=== PATIENT | male | born 1990 | race Caucasian/White ===

== ENCOUNTER 2020-01-15 12:08 | Emergency (ER) | payer OTHER, SELFPAY ==
--- NOTE | 2020-01-15 12:15 | ED.EAR ---
HPI - Ear Problem General Chief complaint: Ear Stated complaint: ear pain Source: patient and RN notes reviewed Limitations: no limitations History of Present Illness HPI Narrative: The patient, a non-smoker/occasional drinker, presents with ear discomfort. Patient states he has about a 1 week history of right ear pain that is mild, worse with palpation, preceded by slight itching and fullness. No fever, cough, URI just sinusitis, loss of taste/smell, CP, sore throat, S OB, discharge, rash, V/D/dehydration; past EENT history remarkable for prior PE tubes.. Related Data Home Medications Medication Instructions Recorded Confirmed No Home Medications 01/15/20 01/15/20 Allergies Allergy/AdvReac Type Severity Reaction Status Date / Time No Known Allergies Allergy Verified 01/15/20 12:33 Review of Systems Review of Systems: Narrative: The patient has been informed that they may have pre-hypertension or Hypertension based on a BP reading in the department. I recommend that the patient call the primary care provider listed on their discharge instructions or a physician of their choice this week to arrange follow up for further evaluation of possible pre-hypertension or Hypertension General/Constitutional: No weight loss,fever Eyes: N0: Redness,discharge Ears/Nose/Throat: No: Epistaxis,ear discharge Respiratory: Denies: Hemoptysis Gastrointestinal: No Vomiting, Bleeding-rectal Skin: No Lumps, eruption Neurologic: No Focal Weakness,Sz Hematologic: Denies: Petechiae/Purpura Psychiatric: No: Suicida ideationl All Other Systems: Reviewed and Negative FOR[facility] Social History Social History Smoking status: Never smoker Second hand tobacco smoke exposure: No Alcohol intake: current Comments At time of signature, agree with nursing past medical, surgical, social and family history. There is no relevant family history pertinent to the presenting complaint Exam Narrative: Exam Narrative: General Appearance: Well appearing, No distress EYE: PERRLA, Conjunctiva clear Ears: External ear normal, right TM bulging red; left TM and EAC clear Nose: Normal nose Mouth/Throat: Normal appearing, Normal lips Neck: Supple Respiratory: Airway patent, No respiratory distress Musculoskeletal: Full ROM Skin: Warm, Dry Neurological: A&O x3, Normal affect Course Vital Signs Vital signs: Vital Signs Temperature 97.7 F 01/15/20 12:17 Pulse Rate 86 01/15/20 12:17 Respiratory Rate 20 01/15/20 12:17 Blood Pressure 148/94 H 01/15/20 12:17 Pulse Oximetry 99 01/15/20 12:17 Temperature 97.7 F 01/15/20 12:17 Pulse Rate 86 01/15/20 12:17 Respiratory Rate 20 01/15/20 12:17 Blood Pressure 148/94 H 01/15/20 12:17 Pulse Oximetry 99 01/15/20 12:17 Medical Decision Making Vital Signs Vital Signs: Vital Signs Temperature 97.7 F 01/15/20 12:17 Pulse Rate 86 01/15/20 12:17 Respiratory Rate 20 01/15/20 12:17 Blood Pressure 148/94 H 01/15/20 12:17 Pulse Oximetry 99 01/15/20 12:17 Temperature 97.7 F 01/15/20 12:17 Pulse Rate 86 01/15/20 12:17 Respiratory Rate 20 01/15/20 12:17 Blood Pressure 148/94 H 01/15/20 12:17 Pulse Oximetry 99 01/15/20 12:17 Discharge Plan Discharge Clinical Impression: Otitis media Qualifiers: Otitis media type: suppurative Chronicity: acute Laterality: right Recurrence: non-recurrent Spontaneous tympanic membrane rupture: without spontaneous rupture Qualified Code(s): H66.001 - Acute suppurative otitis media without spontaneous rupture of ear drum, right ear Patient Disposition: Home, Self-Care Condition: Stable Instructions: Antibiotic Form, Ear Infection (ED) Prescriptions: New amoxicillin-pot clavulanate [Augmentin] 500-125 mg tablet 1 tablet PO Q12H Qty: 20 RF: 0 [id number] 3.5-10,000-1 mg/mL-unit/mL-% drops,suspension 4 drp RIGHTEAR Q8H Qty: 10 RF: 1 No Action No Home
[2020-01-15 12:17] VITALS: BP 148/94; PULSE 86; RESP 20; TEMP 36.5; O2SAT 99
== END 2020-01-15 12:40 | disposition home or self-care (01) ==
PROVIDERS: Emergency Provider Emergency Medicine
DX: H66.001 Acute suppurative otitis media without spontaneous rupture of ear drum, right ear (principal)
CPT/HCPCS: 99203; G0463